=== PATIENT | female | born 1960 | race Caucasian/White ===

== ENCOUNTER 2016-09-24 18:49 | Emergency (ER) | payer OTHER ==
[2016-09-24 19:20] VITALS: BP 130/81
--- NOTE | 2016-09-24 20:06 | RAD ---
INDICATION: Left rib pain COMPARISON: None TECHNIQUE: Multiple views of the ribs were obtained. FINDINGS: Bones: There is no evidence of acute rib fracture. LUNGS: The lungs are clear. There is no pneumothorax. Pleural spaces: There is no evidence of hemothorax. Other: None IMPRESSION: NO ACUTE RIB FRACTURE
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
== END 2016-09-24 20:57 | disposition home or self-care (01) ==
LOC: UCEAST 18:49
DX: S29.011A Strain of muscle and tendon of front wall of thorax, initial encounter (principal); X58.XXXA Exposure to other specified factors, initial encounter; Y93.9 Activity, unspecified; Y92.9 Unspecified place or not applicable; R05 Cough; I10 Essential (primary) hypertension; J44.9 Chronic obstructive pulmonary disease, unspecified; F17.210 Nicotine dependence, cigarettes, uncomplicated
CPT/HCPCS: 99212; G0463

== ENCOUNTER 2017-05-27 10:56 | Emergency (ER) | payer OTHER ==
[2017-05-27 11:13] VITALS: BP 164/116
--- NOTE | 2017-05-27 12:26 | RAD ---
Indication: Head injury. CT of the brain was performed without IV contrast. Ventricular structures are midline. No midline shift is noted. The extra-axial spaces are unremarkable. There is no evidence of intracranial mass or hemorrhage. Mastoid air cells and paranasal sinuses are otherwise unremarkable. IMPRESSION: No intracranial mass or hemorrhage is noted.
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
== END 2017-05-27 12:53 | disposition home or self-care (01) ==
LOC: UCEAST 10:56
DX: S06.0X0A Concussion without loss of consciousness, initial encounter (principal); W17.89XA Other fall from one level to another, initial encounter; Y93.9 Activity, unspecified; Y92.9 Unspecified place or not applicable; I51.9 Heart disease, unspecified; I10 Essential (primary) hypertension; J44.9 Chronic obstructive pulmonary disease, unspecified; Z88.8 Allergy status to other drugs, medicaments and biological substances; Z91.048 Other nonmedicinal substance allergy status; F17.210 Nicotine dependence, cigarettes, uncomplicated
CPT/HCPCS: 70450; 99211; G0463

== ENCOUNTER 2017-10-13 11:47 | Emergency (ER) | payer OTHER ==
[2017-10-13 12:17] VITALS: BP 120/81
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
== END 2017-10-13 12:50 | disposition home or self-care (01) ==
LOC: UCCORT 11:47
DX: T22.211A Burn of second degree of right forearm, initial encounter (principal); T31.0 Burns involving less than 10% of body surface; X19.XXXA Contact with other heat and hot substances, initial encounter; Y93.89 Activity, other specified; Y92.9 Unspecified place or not applicable; Z88.6 Allergy status to analgesic agent; F17.210 Nicotine dependence, cigarettes, uncomplicated
CPT/HCPCS: 16020; 99212; G0463

== ENCOUNTER 2018-05-11 14:40 | Emergency (ER) | payer OTHER ==
[2018-05-11 14:53] VITALS: BP 148/90
--- NOTE | 2018-05-11 15:06 | UC ---
Back Pain HPI - HPI Summary HPI Summary: Patient fell last night landing on her bottom - History of Current Complaint Chief Complaint: UCGeneralIllness Stated Complaint: BACK PAIN S/P FALL Time Seen by Provider: 05/11/18 14:53 Hx Obtained From: Patient Hx Last Menstrual Period: 06/21/12 ?: No Onset/Duration: Sudden Onset, Lasting Days Timing: Constant - pain since last fall, Intermittent - falling Severity Initially: Severe Severity Currently: Severe Pain Intensity: 8 Back Pain: Is Diffuse Aggravating Factor(s): Movement Associated Signs And Symptoms: Positive: Negative - Allergies/Home Medications Allergies/Adverse Reactions: Allergies Allergy/AdvReac Type Severity Reaction Status Date / Time Adhesive Tape Allergy Rash Verified 05/11/18 14:52 oxaprozin [From Daypro] Allergy Unknown Verified 05/11/18 14:52 Reaction Details PMH/Surg Hx/FS Hx/Imm Hx Previously Healthy: Yes Cardiovascular History: Cardiac Disease, Hypertension - Surgical History Surgical History: Yes Surgery Procedure, Year, and Place: c section x2, triple bypass, tuballigation, appy. lt elbow 2012. breast bx - Family History Known Family History: Positive: Cardiac Disease, Hypertension, Diabetes - Social History Alcohol Use: None Substance Use Type: None Smoking Status (MU): Light Every Day Tobacco Smoker Type: Cigarettes Amount Used/How Often: 5-6 cigarrettes daily Household Exposure Type: Cigarettes Review of Systems All Other Systems Reviewed And Are Negative: Yes Constitutional: Positive: Fatigue Skin: Positive: Negative Eyes: Positive: Negative ENT: Positive: Negative Respiratory: Positive: Negative Cardiovascular: Positive: Negative Gastrointestinal: Positive: Negative Genitourinary: Positive: Negative Motor: Positive: Negative Neurovascular: Positive: Negative Musculoskeletal: Positive: Arthralgia, Myalgia Neurological: Positive: Headache Psychological: Positive: Negative Is Patient Immunocompromised?: No Physical Exam Triage Information Reviewed: Yes Appearance: Well-Nourished, Ill-Appearing, Pain Distress Vital Signs: Initial Vital Signs Temp 97.9 F 05/11/18 14:47 Pulse 87 05/11/18 14:47 Resp 16 05/11/18 14:47 BP 148/90 05/11/18 14:47 Pulse Ox 97 05/11/18 14:47 Vital Signs Reviewed: Yes Eye Exam: Normal ENT Exam: Normal Dental Exam: Normal Neck exam: Normal Respiratory Exam: Normal Respiratory: Positive: Chest non-tender, Lungs clear, Normal breath sounds Cardiovascular Exam: Normal Cardiovascular: Positive: RRR, No Murmur, Pulses Normal Abdominal Exam: Normal Bowel Sounds: Positive: Present Musculoskeletal Exam: Normal Neurological Exam: Normal Neurological: Positive: Other: - PERRLA, academic intern is equal bilaterally, smile is symmetrical, DIAS Diagnostics - EKG Cardiac Rhythm: Sinus: Normal - 93 Summary of EKG Findings: abnormal T wave changes in V1-V3 Back Pain Course/Dx - Course Course Of Treatment: hx obtained, exam performed ,EKG obtained and reviewed with DR Vasquez. Do to Pts cardiac history and multiple unexplained falls recommend follow up in the ER. talked to Arnel Dash NP at [place] who is will ing to see the patient. she will arrive via private car. AMA paperwork signed. - Differential Dx/Diagnosis Provider Diagnosis: Frequent falls, Back pain Discharge - Sign-Out/Discharge Documenting (check all that apply): Patient Departure All imaging exams completed and their final reports reviewed: No Studies - Discharge Plan Condition: Stable Disposition: AGAINST MEDICAL ADVICE Referrals: Sloane Moreno PA [Primary Care Provider] - - Billing Disposition and Condition Condition: STABLE Disposition: Against Medical Advice
== END 2018-05-11 15:15 | disposition left against medical advice (07) ==
LOC: UCCORT 14:40
DX: M54.9 Dorsalgia, unspecified (principal); F17.210 Nicotine dependence, cigarettes, uncomplicated; Z91.09 Other allergy status, other than to drugs and biological substances; I10 Essential (primary) hypertension; Z88.8 Allergy status to other drugs, medicaments and biological substances; Z91.81 History of falling; W19.XXXA Unspecified fall, initial encounter; Y92.9 Unspecified place or not applicable
CPT/HCPCS: 93005; 99212; G0463

== ENCOUNTER → 2018-12-29 09:50 | Day surgery (SDC) | payer OTHER ==
[~2018-12-29 09:50] MED LIST: Acetaminophen IV 1GM/100ML * 1,000 MG/100 ML VIAL IVPB ONE; Acetaminophen IV 1GM/100ML * 100 ML ONE; Buffered Lidocaine 1% SYRIN* 1 ML/SYRINGE INTRADERM ONE; Bupivacaine 0.5% SDV PF* 30ML VIAL ONE; Dexamethasone IV* 4 MG/ML 1 ML (4 MG) ONE; Labetalol IV* 5 MG/ML 20 ML VIAL ONE; Lactated Ringers 1000 ML Bag* 1,000 ML IV SCH; Lidocaine 2% PF * 5 ML VIAL ONE; Naloxone* 0.4 MG/ML 1 ML VIAL IV PRN; Ondansetron INJ* 2 MG/ML VIAL IV PRN; Propofol* 10 MG/ML 20 ML BTL ONE; Sodium Citrate/Citric Acid* 15 ML UDC ONE; ceFAZolin 2 GM PREMIX in ORs 2 GM/50 ML BAG ONE; fentaNYL* 50 MCG/ML 2 ML VIAL (100 MCG VIAL) ONE
[2018-12-29] MEDS: Sodium Citrate/Citric Acid* 15 ML UDC PO ONE ×2 (10:29→11:13)
[2018-12-29] MEDS: fentaNYL* 50 MCG/ML 2 ML VIAL (100 MCG VIAL) IV PRN ×3 (12:38→12:54)
--- NOTE | 2018-12-29 14:06 | OP ---
DATE OF OPERATION: 12/29/18 MERGED WITH [facility] DATE OF : 58 SURGEON: Ashley Lorenzana MD TECHNICAL LEAD: ROMMEL Gonzalez ANESTHESIA: General. 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 OPERATIVE PROCEDURE: Ulnar nerve submuscular transposition at the elbow. ESTIMATED BLOOD LOSS: Zero. TOURNIQUET TIME: About 40 minutes. INDICATIONS FOR PROCEDURE: Marcy is a 58-year-old female, who had an ulnar nerve decompression 3 to 4 years ago. She had good relief of her symptoms, but they are now recurring. She has a subluxing ulnar nerve and she is quite thin. When she rests her elbow on anything, her nerve is very sensitive. She presents for submuscular transposition of the ulnar nerve. DESCRIPTION OF PROCEDURE: The patient was brought to the operating room, was given a general anesthetic and placed in the supine position on the operating table with a tourniquet around her left upper arm. The skin of her left upper extremity was prepped and draped in the usual sterile fashion. The upper extremity was exsanguinated and the tourniquet elevated to 250 mmHg. The previous scar was incised and we carefully dissected down to the ulnar nerve, which was encasing the moderate amount of scar tissue. It was carefully dissected free from all the scar tissue and mobilized. The flexor pronator origin was then incised in Z-lengthening fashion and the nerve was transposed submuscular. All of the fascial edges were incised, so there were no sharp edges where the nerve encountered any of the muscle. The wound was copiously irrigated with saline. The Z-lengthening was repaired with #1 Vicryl suture in interrupted fashion and again we put the elbow through a range of motion. There was no kinking of the nerve, in fact it was somewhat patulous. The subcutaneous tissue was closed with 3-0 Vicryl suture and the skin with skin jason. The wound was dressed with Xeroform, 4x4, Webril, and Ciro wrap. The patient tolerated the procedure well and was brought to the recovery room in good condition. [id number]/[facility] #: [id number] [facility] HOSPITALTrevin
[2018-12-29 16:00] VITALS: BP 135/86
== END | disposition home or self-care (01) ==
LOC: OREAST 09:50
PROVIDERS: ATTEND Orthopaedic Surgery
DX: G56.22 Lesion of ulnar nerve, left upper limb (principal); I10 Essential (primary) hypertension; M19.90 Unspecified osteoarthritis, unspecified site; I25.10 Atherosclerotic heart disease of native coronary artery without angina pectoris; M79.7 Fibromyalgia; F17.210 Nicotine dependence, cigarettes, uncomplicated; E78.5 Hyperlipidemia, unspecified; K21.9 Gastro-esophageal reflux disease without esophagitis; J44.9 Chronic obstructive pulmonary disease, unspecified
CPT/HCPCS: A9270-GY; J0690; J1100; J2704; J3010; J3490